=== PATIENT | female | born 1970 | race Caucasian/White ===

== ENCOUNTER 2021-04-02 14:37 | Emergency (ER) | payer OTHER ==
--- NOTE | 2021-04-02 15:17 | EDM.PDOC ---
ED HPI GENERAL MEDICAL PROBLEM - General Chief Complaint: Skin Complaint Stated Complaint: ABCESS IN VAGINAL Time Seen by Provider: 04/02/21 14:50 Source of Information: Reports: Patient, RN Notes Reviewed History Limitations: Reports: No Limitations - History of Present Illness INITIAL COMMENTS - FREE TEXT/NARRATIVE: Patient is a 51-year-old female presenting to the emergency department with complaints of abscess to left lateral mons pubis. Reports approximate 1 week ago, she developed pain and swelling to the area. Few days ago, she was able to drain a small amount of purulent drainage from the abscess, however it has continued to grow in size and become increasingly painful. She has had no fever, chills, nausea, or vomiting. She last ate this morning and has had small sips of water throughout the day. Left Groin Pain Score (Numeric/FACES): 10 - Related Data Allergies Allergy/AdvReac Type Severity Reaction Status Date / Time morphine Allergy Rash Verified 04/02/21 14:49 Home Meds: Home Meds PARoxetine [Paxil] 20 mg PO DAILY 04/02/21 [History] Pregabalin [Lyrica] 150 mg PO BID 04/02/21 [History] Past Medical History Cardiovascular History: Reports: Hypertension - Infectious Disease History Infectious Disease History: Reports: Novel Coronavirus Social & Family History - Tobacco Use Tobacco Use Status *Q: Current Every Day Tobacco User Years of Tobacco use: 20 Packs/Tins Daily: 0.5 ED ROS GENERAL - Review of Systems Review Of Systems: See Below Constitutional: Reports: No Symptoms. Denies: Fever, Chills HEENT: Reports: No Symptoms Respiratory: Reports: No Symptoms Cardiovascular: Reports: No Symptoms Endocrine: Reports: No Symptoms GI/Abdominal: Reports: No Symptoms. Denies: Nausea, Vomiting : Reports: No Symptoms Musculoskeletal: Reports: No Symptoms Skin: Reports: Other (abcess to left mons pubis) Neurological: Reports: No Symptoms Psychiatric: Reports: No Symptoms Hematologic/Lymphatic: Reports: No Symptoms Immunologic: Reports: No Symptoms ED EXAM, SKIN/RASH Exam: See Below Exam Limited By: No Limitations General Appearance: Alert, WD/WN, No Apparent Distress Respiratory/Chest: No Respiratory Distress, Lungs Clear, Normal Breath Sounds, No Accessory Muscle Use, Chest Non-Tender Cardiovascular: Normal Peripheral Pulses, Regular Rate, Rhythm, No Edema, No Gallop, No JVD, No Murmur, No Rub Neurological: Alert, Oriented, CN II-XII Intact, Normal Cognition, Normal Gait, Normal Reflexes, No Motor/Sensory Deficits Psychiatric: Normal Affect, Normal Mood Skin: Other (4cm x 6 cm area of redness and thick induration to left mons pubis. small scab to mid lower aspect of abcess. No drainage or obvious head.) ED SKIN PROCEDURES - I&D Site: left mons pubis Skin Prep: Providone-Iodine (Betadine), Saline, Sterile Drape Local Anesthesia - Bupivicaine (Marcaine): 0.5% Plain Local Anesthetic Volume: 3cc Area Incised With: 15 Blade Drainage: Purulent, Bloody, Moderate Amount Probed to Break Up Loculations: Yes Packed With: Other (1/2 plain packing gauze) Sterile Dressing: Other (abd) Complications: No Course - Vital Signs Last Recorded V/S: Last Vital Signs Temp 98.5 F 04/02/21 14:50 Pulse 70 04/02/21 19:19 Resp 17 04/02/21 19:19 BP 142/82 H 04/02/21 19:19 Pulse Ox 98 04/02/21 19:19 - Orders/Labs/Meds Orders: Active Orders 24 hr Category Date Time Status CULTURE, ANAEROBE & AEROBE [MREF] Stat Lab 04/02/21 16:32 Received Meds: Medications Discontinued Medications Generic Name Dose Route Start Last Admin Trade Name Mee PRN Reason Stop Dose Admin Bupivacaine HCl 10 ml 04/02/21 15:23 04/02/21 16:47 Bupivacaine 0.5% 10 Ml Sdv INJECT 04/02/21 15:24 10 ml ONETIME ONE Administration Hydromorphone HCl Confirm 04/02/21 16:50 04/02/21 16:52 Hydromorphone 0.5 Mg/0.5 Ml Syringe Administered 04/02/21 16:51 0.5 mg Dose Administration 0.5 mg .ROUTE .STK-MED ONE Lidocaine HCl Confirm 04/02/21 15:59 Xylocaine-Mpf 1% Administered 04/02/21 16:00 Dose 2 mls @ as directed .ROUTE .STK-MED ONE Lidocaine HCl Confirm 04/02/21 15:59 Xylocaine-Mpf 1% Administered 04/02/21 16:00 Dose 2 mls @ as directed .ROUTE .STK-MED ONE Ceftriaxone Sodium 2 gm/ 100 mls @ 200 mls/hr 04/02/21 16:34 04/02/21 16:51 Sodium Chloride IV 04/02/21 17:03 200 mls/hr ONETIME ONE Administration Ketamine HCl Confirm 04/02/21 15:58 Ketamine 500 Mg/10 Ml Mdv Administered 04/02/21 15:59 Dose 500 mg .ROUTE .STK-MED ONE Lidocaine HCl 10 ml 04/02/21 15:22 04/02/21 16:47 Lidocaine 1% 10 Ml Mdv INJECT 04/02/21 15:23 Not Given ONETIME ONE Midazolam HCl Confirm 04/02/21 15:58 Midazolam 1 Mg/Ml 2 Ml Sdv Administered 04/02/21 15:59 Dose 2 mg .ROUTE .STK-MED ONE Propofol Confirm 04/02/21 15:59 Propofol 200 Mg/20 Ml Sdv Administered 04/02/21 16:00 Dose 200 mg .ROUTE .STK-MED ONE - Re-Assessments/Exams Free Text/Narrative Re-Assessment/Exam: Patient is a 51-year-old female presenting to the emergency department with complaints of painful abscess to her left mons pubis. On exam, patient has not large area of redness and induration approximately 4 cm in width and 6 cm in length. There is no obvious head, however there is a small scab present which is likely related to ingrown hair. Bedside ultrasound was completed and showed a collection of fluid underlying the area of the scab. Feel she would benefit from I&D. Fluid collection is fairly deep, therefore she would likely benefit from conscious sedation. She has not eaten since this morning and has had small sips of water throughout the day. We have contacted TIFFANY to consult for possible procedural sedation. 04/02/21 16:32 Procedural consent obtained and timeout performed. Conscious sedation was provided by TIFFANY Dey. I&D performed the left mons pubis. See procedure notes. Patient tolerated well. Patient will be monitored by TIFFANY Dey and/granulator tender until she returns to baseline. 04/02/21 19:03 Patient is awake and feeling much better. She ate and is now up walking around the unit. She would like to be discharged. She has a ride back to her hotel. We will start her on doxycycline twice daily. I will also give hydrocodone with Tylenol as needed for pain. Packing should be removed in 2 days. Discussed follow-up and return precautions she verbalized understanding. Discharge instructions as document. Departure - Departure Time of Disposition: 19:06 Disposition: Home, Self-Care 01 Condition: Good Clinical Impression: Abscess - Discharge Information *PRESCRIPTION DRUG MONITORING PROGRAM REVIEWED*: Yes *COPY OF PRESCRIPTION DRUG MONITORING REPORT IN PATIENT EUGENE: No Instructions: Skin Abscess, Moderate Conscious Sedation, Adult, Care After Referrals: PCP,Not In Area [Primary Care Provider] - Forms: ED Department Discharge, ED Return to Work/School Form Additional Instructions: Take the doxycycline as prescribed. Use Tylenol and ibuprofen as needed for discomfort. For pain not relieved by t his, a prescription for hydrocodone with Tylenol has been provided. Uses only as prescribed. Do not work or drive for 12 hours after taking it as it can be sedating. Remove packing from wound in 48 hours. Wash gently with soap and water. If pain and swelling should worsen or you fail to see improvement over the next 48 to 72 hours, recommend follow-up either in the clinic or the emergency dep artment. Sepsis Event Note (ED) - Evaluation Sepsis Screening Result: No Definite Risk - Focused Exam Vital Signs: Vital Signs Temp Pulse Resp BP Pulse Ox 04/02/21 19:19 70 17 142/82 H 98 04/02/21 18:00 67 19 128/66 95 04/02/21 17:45 72 18 116/69 92 L 04/02/21 17:30 72 20 132/61 93 L 04/02/21 17:15 68 17 116/72 100 04/02/21 17:00 64 18 131/67 100 04/02/21 16:50 69 18 148/76 H 100 04/02/21 16:40 68 21 H 144/82 H 100 04/02/21 16:15 68 17 116/72 100 04/02/21 15:00 68 15 116/72 96 04/02/21 14:50 98.5 F 88 18 159/81 H 98 - My Orders Last 24 Hours: My Active Orders 04/02/21 16:32 CULTURE, ANAEROBE & AEROBE [MREF] Stat - Assessment/Plan Last 24 Hours: My Active Orders 04/02/21 16:32 CULTURE, ANAEROBE & AEROBE [MREF] Stat
[2021-04-02] MEDS ORDERED: Lidocaine 1% 10 ML MDV INJECT ONE (15:22)
[2021-04-02] MEDS ORDERED: Bupivacaine 0.5% 10 ML SDV INJECT ONE (15:23)
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
[2021-04-02] MEDS ORDERED: Midazolam 1 MG/ML 2 ML SDV ONE (15:58)
[2021-04-02] MEDS ORDERED: Ketamine 500 mg/10 ML MDV ONE (15:58)
[2021-04-02] MEDS ORDERED: Propofol 200 MG/20 ML SDV ONE (15:59)
[2021-04-02] MEDS ORDERED: Lidocaine 1% 2 ML ONE ×2 (15:59)
[2021-04-02] MEDS ORDERED: cefTRIAXone 2 GM in Sodium Chloride 0.9% 100 ML IV ONE (16:34)
[2021-04-02] MEDS ORDERED: HYDROmorphone 0.5 MG/0.5 ML Syringe ONE (16:50)
== END 2021-04-02 19:19 | disposition home or self-care (01) ==
LOC: JD.ED 14:37
DX: L02.215 Cutaneous abscess of perineum (principal)
CPT/HCPCS: 56405; 87070; 87077; 87186; 87205; 96365; 96375; 99283; J0696; J1170; J2250; J2704; J3490; 00400; 87075